=== PATIENT | female | born 2000 | race African-American/Black ===

== ENCOUNTER 2020-08-05 17:51 | Emergency (ER) | payer BC, OTHER ==
[~2020-08-05] VITALS: Ht 177.8 cm; Wt 95.4 kg
--- NOTE | 2020-08-05 18:13 | ED Abdominal Pain ---
General Chief Complaint: Abdominal/GI Problems Stated Complaint: R SIDE ABD PAIN/PELVIC PAIN Source of Information: Patient Exam Limitations: No Limitations History of Present Illness Date Seen by Provider: Aug 05, 2020 Time Seen by Provider: 18:00 Initial Comments Patient to the ER by private conveyance with chief complaint 2 days of abdominal discomfort in her right lower quadrant umbilicus area radiating through to her low back. Her period started 2 days ago. She says she has had pain like this with her periods in the past but never this bad. She denies any fever but she has had nausea and vomiting. She was up from [place] visiting her sister and has not had anything to eat or drink since yesterday. She had a regular bowel movement this morning. No sick contacts. No surgical history. No significant medical history other than she recently got her HPV vaccination. She rates her pain as a 9 out of 10 and everything she tried to take for it as it made her nauseated and throw it up. She went to urgent care and they gave her some Zofran and a shot of something that made her drowsy. Allergies and Home Medications Allergies Coded Allergies: No Known Drug Allergies (Unverified , 08/05/20) Patient Home Medication List Home Medication List Reviewed: Yes Review of Systems Review of Systems Constitutional: No chills, No fever; malaise EENTM: No Blurred Vision, No Double Vision Respiratory: Denies Cough, Denies Shortness of Air Cardiovascular: Denies Chest Pain, Denies Lightheadedness Gastrointestinal: See HPI, Abdominal Pain; Denies Constipated, Denies Diarrhea; Nausea, Poor Appetite, Poor Fluid Intake, Vomiting Genitourinary: Denies Burning, Denies Discharge Musculoskeletal: No back pain, No joint pain Psychiatric/Neurological: Denies Anxiety, Denies Depressed All Other Systems Reviewed Negative Unless Noted: Yes Past Igbqhfx-Cilbpu-Ppdjkx Hx Patient Social History Alcohol Use: Denies Use Drug of Choice: denies Smoking Status: Never a Smoker Physical Exam Vital Signs Vital Signs - First Documented 08/05/20 17:55 Temp 36.3 Pulse 60 Resp 18 B/P (MAP) 141/91 (108) Pulse Ox 100 O2 Delivery Room Air Capillary Refill : Height/Weight/BMI Height: '" Weight: lbs. oz. kg; BMI Method: General Appearance: WD/WN, moderate distress HEENT: PERRL/EOMI, pharynx normal Neck: full range of motion, normal inspection Respiratory: lungs clear, normal breath sounds, no respiratory distress, no accessory muscle use Cardiovascular: normal peripheral pulses, regular rate, rhythm Peripheral Pulses: 2+ Radial Pulses (R), 2+ Radial Pulses (L) Gastrointestinal: normal bowel sounds, soft, no organomegaly, guarding (Umbilicus and suprapubic); No rebound; tenderness (Right lower quadrant, suprapubic and umbilicus), other (Rovsing sign positive, psoas positive but negative for McBurney's point tenderness or rebound tenderness. Negative for Oreilly sign) Neurologic/Psychiatric: alert, normal mood/affect, oriented x 3 Skin: normal color, warm/dry Progress/Results/Core Measures Results/Orders Lab Results Laboratory Tests Test 08/05/20 18:08 08/05/20 19:08 Range/Units White Blood Count 8.0 4.3-11.0 10^3/uL Red Blood Count 4.50 3.80-5.11 10^6/uL Hemoglobin 12.7 11.5-16.0 g/dL Hematocrit 39 35-52 % Mean Corpuscular Volume 87 80-99 fL Mean Corpuscular Hemoglobin 28 25-34 pg Mean Corpuscular Hemoglobin Concent 33 32-36 g/dL Red Cell Distribution Width 13.9 10.0-14.5 % Platelet Count 246 130-400 10^3/uL Mean Platelet Volume 11.0 9.0-12.2 fL Immature Granulocyte % (Auto) 0 % Neutrophils (%) (Auto) 83 H 42-75 % Lymphocytes (%) (Auto) 11 L 12-44 % Monocytes (%) (Auto) 5 0-12 % Eosinophils (%) (Auto) 0 0-10 % Basophils (%) (Auto) 0 0-10 % Neutrophils # (Auto) 6.6 1.8-7.8 10^3/uL Lymphocytes # (Auto) 0.9 L 1.0-4.0 10^3/uL Monocytes # (Auto) 0.4 0.0-1.0 10^3/uL Eosinophils # (Auto) 0.0 0.0-0.3 10^3/uL Basophils # (Auto) 0.0 0.0-0.1 10^3/uL Immature Granulocyte # (Auto) 0.0 0.0-0.1 10^3/uL Sodium Level 139 135-145 MMOL/L Potassium Level 3.9 3.6-5.0 MMOL/L Chloride Level 105 98-107 MMOL/L Carbon Dioxide Level 22 21-32 MMOL/L Anion Gap 12 5-14 MMOL/L Blood Urea Nitrogen 8 7-18 MG/DL Creatinine 0.81 0.60-1.30 MG/DL Estimat Glomerular Filtration Rate > 60 BUN/Creatinine Ratio 10 Glucose Level 109 H 70-105 MG/DL Calcium Level 9.0 8.5-10.1 MG/DL Corrected Calcium 8.6 8.5-10.1 MG/DL Total Bilirubin 0.5 0.1-1.0 MG/DL Aspartate Amino Transf (AST/SGOT) 21 5-34 U/L Alanine Aminotransferase (ALT/SGPT) 18 0-55 U/L Alkaline Phosphatase 81 40-136 U/L C-Reactive Protein High Sensitivity 0.20 0.00-0.50 MG/DL Total Protein 7.9 6.4-8.2 GM/DL Albumin 4.5 3.2-4.5 GM/DL Lipase 16 8-78 U/L Serum Test, Qualitative NEGATIVE NEGATIVE Urine Color RED H Urine Clarity CLEAR Urine pH 6.0 5-9 Urine Specific Brunson 1.025 H 1.016-1.022 Urine Protein 2+ H NEGATIVE Urine Glucose (UA) NEGATIVE NEGATIVE Urine Ketones TRACE H NEGATIVE Urine Nitrite NEGATIVE NEGATIVE Urine Bilirubin NEGATIVE NEGATIVE Urine Urobilinogen 0.2 < = 1.0 MG/DL Urine Leukocyte Esterase NEGATIVE NEGATIVE Urine RBC (Auto) 3+ H NEGATIVE Urine RBC TNTC H /HPF Urine WBC NONE /HPF Urine Crystals NONE /LPF Urine Bacteria NEGATIVE /HPF Urine Casts NONE /LPF Urine Mucus SMALL H /LPF Urine Culture Indicated NO My Orders Orders - WAYNE MESSINA Ua Culture If Indicated (08/05/20 18:02) Cbc With Automated Diff (08/05/20 18:10) Comprehensive Metabolic Panel (08/05/20 18:10) Hs C Reactive Protein (08/05/20 18:10) Lipase (08/05/20 18:10) Hcg,Qualitative Serum (08/05/20 18:10) Morphine Injection (Morphine Injection (08/05/20 18:15) Ondansetron Injection (Zofran Injectio (08/05/20 18:15) Ed Iv/Invasive Line Start (08/05/20 18:17) Lactated Ringers (Lr 1000 Ml Iv Solution (08/05/20 18:30) Ct Abd/Pelv W (Appendicitis) (08/05/20 18:17) Morphine Injection (Morphine Injection (08/05/20 18:19) Iohexol Injection (Omnipaque 350 Mg/Ml 1 (08/05/20 18:45) Received Contrast (Hold Metformin- Contr (08/05/20 18:45) Ns (Ivpb) (Sodium Chloride 0.9% Ivpb Bag (08/05/20 18:45) Medications Given in ED Current Medications Medications Dose Ordered Sig/Millicent Route Start Time Stop Time Status Last Admin Dose Admin Iohexol 100 ml ONCE ONCE IV 08/05/20 18:45 08/05/20 18:46 DC 08/05/20 18:51 100 ML Lactated Ringer's 1,000 ml @ 0 mls/hr Q0M ONCE IV 08/05/20 18:30 08/05/20 18:31 DC 08/05/20 18:29 1,000 MLS/HR Morphine Sulfate 10 mg STK-MED ONCE .ROUTE 08/05/20 18:19 08/05/20 18:27 DC 08/05/20 18:30 4 MG Ondansetron HCl 8 mg ONCE ONCE IVP 08/05/20 18:15 08/05/20 18:16 DC 08/05/20 18:29 8 MG Sodium Chloride 100 ml ONCE ONCE IV 08/05/20 18:45 08/05/20 18:46 DC 08/05/20 18:51 80 ML Vital Signs/I&O 08/05/20 17:55 Temp 36.3 Pulse 60 Resp 18 B/P (MAP) 141/91 (108) Pulse Ox 100 O2 Delivery Room Air Progress Progress Note : Time: 18:16 Progress Note Pain started with menses so suspect ovarian cyst could be very likely however kidney stone, appendicitis, mesenteric adenitis, gastroenteritis are also possibilities. She is only mildly tender in her epigastric region compared to her suprapubic periumbilical region. Plan to give her some morphine, Zofran, a liter of fluids and check some labs as well as get a CT with IV contrast. We can rule out kidney stones on the precontrast phase in the ureters. Diagnostic Imaging Diagonstic Imaging: CT Plain Films/CT/US/NM/MRI: abdomen, pelvis Comments NAME: KEMAR [facility]ERRERA [facility] REC#: [id number] PT STATUS: REG ER : 2000 PHYSICIAN: WAYNE MESSINA MD ADMIT DATE: 08/05/20/ER Draft Date of Exam:08/05/20 CT ABD/PELV W (APPENDICITIS) PROCEDURE: CT abdomen and pelvis with contrast, rule out appendicitis. TECHNIQUE: Multiple contiguous axial images were obtained through the abdomen and pelvis after the administration of intravenous contrast. All CT scans use one or more of the following dose optimizing techniques: automated exposure control, MA and/or KvP adjustment based on patient size and exam type or iterative reconstruction. INDICATION: Right lower quadrant abdominal pain. COMPARISON: None. FINDINGS: Partially visualized cardiomegaly. The liver, gallbladder, pancreas, spleen, adrenals, kidneys, collecting systems and bladder are negative. Small amount of free fluid in the pelvis may be physiologic. The appendix is well seen and is normal. No free intraperitoneal air. No lymphadenopathy. No evidence of bowel obstruction or inflammation. No acute osseous findings. IMPRESSION: 1. Small amount of free fluid in the pelvis may be physiologic. 2. The appendix is well seen and is normal. Dictated on workstation # [id number] Dict: 08/05/20 1854 Trans: 08/05/20 1859 [facility] [id number] Interpreted by: MARY WILKINSON MD Electronically signed by: Reviewed: Reviewed by Me Departure Impression Primary Impression: Abdominal pain Qualified Codes: R10.31 - Right lower quadrant pain Additional Impression: suspected ovarian cyst Disposition: 01 HOME, SELF-CARE Condition: Improved Departure-Patient Inst. Decision time for Depature: 19:34 Referrals: NO,LOCAL PHYSICIAN (PCP/Family) Primary Care Physician Patient Instructions: Abdominal Pain, Adult ED, LOCAL PHYSICIAN LIST Add. Discharge Instructions: I suspect your pain may be related to your ovaries. It has been going on for a few days so it would be reasonable to have it followed up outpatient by your noise tester of choice. Plan follow-up in the next week or 2. Return to the ER for severe intractable pain nausea or vomiting. Naproxen 500 mg twice a day as necessary for pain. Heating pads as necessary for pain. Tylenol 1000 mg every 8 hours as necessary for pain. Ondansetron 1 tablet under the tongue every 6 hours as necessary for nausea and/or vomiting. Ondansetron/Zofran will dissolve and can be absorbed through the mouth and does not need to be swallowed. All discharge instructions reviewed with patient and/or family. Voiced understanding. Scripts Naproxen (Naprosyn) 500 Mg Tablet 500 MG PO BID, #30 TAB 0 Refills Prov: WAYNE MESSINA 08/05/20 Ondansetron (Ondansetron Odt) 4 Mg Tab.rapdis 4 MG PO Q6H PRN for NAUSEA/VOMITING, #8 TAB 0 Refills Prov: WAYNE MESSINA 08/05/20 WAYNE MESSINA Aug 05, 2020 18:13
[2020-08-05] MEDS ORDERED: morphine INJ 4 MG/ML 1 ML (VIAL/SYRINGE) IVP ONE (18:15)
[2020-08-05] MEDS ORDERED: ONDANSETRON 4 MG/2 ML (SDV) Z0FRAN IVP ONE (18:15)
[2020-08-05] MEDS ORDERED: morphine INJ 10 MG/ML 1ML (SYR OR VIAL) ONE (18:19)
[2020-08-05 18:27] LABS: BASOPHILS % (AUTO) 0 % (0-10); EOSINOPHILS % (AUTO) 0 % (0-10); HEMATOCRIT 39 % (35-52); HEMOGLOBIN 12.7 g/dL (11.5-16.0); LYMPHOCYTES # (AUTO) 0.9 10^3/uL (1.0-4.0); LYMPHOCYTES % (AUTO) 11 % (12-44); MEAN CORPUSCULAR HEMOGLOBIN 28 pg (25-34); MEAN CORPUSCULAR HGB CONC 33 g/dL (32-36); MEAN CORPUSCULAR VOLUME 87 fL (80-99); MONOCYTES # (AUTO) 0.4 10^3/uL (0.0-1.0); MONOCYTES % (AUTO) 5 % (0-12); NEUTROPHILS # (AUTO) 6.6 10^3/uL (1.8-7.8); NEUTROPHILS % (AUTO) 83 % (42-75); PLATELET COUNT 246 10^3/uL (130-400)
[2020-08-05 18:28] LABS: ALANINE AMINOTRANSFERASE 18 U/L (0-55); ALBUMIN 4.5 GM/DL (3.2-4.5); ALKALINE PHOSPHATASE 81 U/L (40-136); BILIRUBIN,TOTAL 0.5 MG/DL (0.1-1.0); BUN/CREATININE RATIO 10; CARBON DIOXIDE 22 MMOL/L (21-32); CHLORIDE 105 MMOL/L (98-107); CREATININE SERUM 0.81 MG/DL (0.60-1.30); GFR ESTIMATED > 60; GLUCOSE 109 MG/DL (70-105); LIPASE 16 U/L (8-78); POTASSIUM 3.9 MMOL/L (3.6-5.0); SODIUM 139 MMOL/L (135-145); TOTAL PROTEIN 7.9 GM/DL (6.4-8.2)
[2020-08-05] MEDS ORDERED: LACTATED RINGERS 1,000 ML IV ONE (18:30)
[2020-08-05] MEDS ORDERED: IOHEXOL 350 MG/ML 100 ML (OMNIPAQUE 350) VIAL IV ONE (18:45)
[2020-08-05] MEDS ORDERED: NS 100 ML (IVPB) BAG IV ONE (18:45)
[2020-08-05] MEDS ORDERED: HOLD METFORMIN - RECEIVED CONTRAST 20 ML VIAL IV SCH (18:45)
--- NOTE | 2020-08-05 19:01 | Diagnostic Imaging Report ---
PROCEDURE: CT abdomen and pelvis with contrast, rule out appendicitis. TECHNIQUE: Multiple contiguous axial images were obtained through the abdomen and pelvis after the administration of intravenous contrast. All CT scans use one or more of the following dose optimizing techniques: automated exposure control, MA and/or KvP adjustment based on patient size and exam type or iterative reconstruction. INDICATION: Right lower quadrant abdominal pain. COMPARISON: None. FINDINGS: Partially visualized cardiomegaly. The liver, gallbladder, pancreas, spleen, adrenals, kidneys, collecting systems and bladder are negative. Small amount of free fluid in the pelvis may be physiologic. The appendix is well seen and is normal. No free intraperitoneal air. No lymphadenopathy. No evidence of bowel obstruction or inflammation. No acute osseous findings. IMPRESSION: 1. Small amount of free fluid in the pelvis may be physiologic. 2. The appendix is well seen and is normal. Dictated by: Dictated on workstation # [id number]
[2020-08-05 19:13] LABS: BILIRUBIN,URINE NEGATIVE (NEGATIVE); CLARITY,URINE CLEAR; COLOR,URINE RED; GLUCOSE, URINE (UA) NEGATIVE (NEGATIVE); KETONES,URINE TRACE (NEGATIVE); LEUKOCYTE ESTERASE ,URINE NEGATIVE (NEGATIVE); NITRITE,URINE NEGATIVE (NEGATIVE); PROTEIN,URINE 2+ (NEGATIVE)
[2020-08-05 19:25] LABS: RBC,URINE TNTC /HPF
[2020-08-05 19:28] LABS: BACTERIA,URINE NEGATIVE /HPF
[2020-08-05] MEDS ORDERED: ONDA4TAB11 PO (19:45)
[2020-08-05] MEDS ORDERED: NAPR-1071 PO (19:45)
[2020-08-05] MEDS ORDERED: RX-NAPROXEN (NAPROSYN) 250 MG TAB PPK#4 PO STA (19:52)
[2020-08-05 19:58] VITALS: BP 135/88
== END 2020-08-05 19:58 | disposition home or self-care (01) ==
LOC: ER 17:53
DX: R10.2 Pelvic and perineal pain (principal); R10.13 Epigastric pain; R10.33 Periumbilical pain; R10.31 Right lower quadrant pain; Z32.02 Encounter for pregnancy test, result negative
CPT/HCPCS: 36415; 74177; 80053; 81000; 83690; 84703; 85025; 86141